=== PATIENT | male | born 1960 | race Caucasian/White ===

== ENCOUNTER 2017-12-08 09:49 | Emergency (ER) | payer OTHER ==
[2017-12-08 09:57] VITALS: BP 158/88
[2017-12-08] MEDS ORDERED: TDAP ADULT 0.5 ML INJ (BOOSTRIX) IM ONE (10:02)
--- NOTE | 2017-12-08 10:05 | EDPHY ---
H & P Stated Complaint: R hand injury at work--wire cut--needs tetanus Source: Patient Exam Limitations: No limitations - Personal History Current Tetanus/Diphtheria Vaccine: No Current Tetanus Diphtheria and Acellular Pertussis (TDAP): No Tetanus Vaccine Date: 1997 - Medical/Surgical History Hx Asthma: No Hx Chronic Respiratory Disease: No Hx Diabetes: No Hx Cardiac Disease: No Hx Renal Disease: No Hx Cirrhosis: No Hx Alcoholism: No Hx HIV/AIDS: No Hx Splenectomy or Spleen Trauma: No Other PMH: htn - Social History Smoking Status: Never smoked Time Seen by Provider: 12/08/17 10:01 HPI/ROS: HPI: This is a 57-year-old male who presents with Chief Complaint: R hand injury at work--wire cut--needs tetanus Location: Right hand Quality: Injury Duration: Prior to arrival Signs and Symptoms: No bleeding, no radiation, no numbness, no weakness, no tingling, no incontinence, no decreased range of motion, no swelling, no pain, no fever Timing: Acute Severity: [id number] Context: Patient is right-hand dominant, employed at [employer], presents with complaints of puncture wound of metal wire at the top of his right hand. He reports that the wire was intact and he was able to pull it out prior to arrival. 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 He denies any pain/paresthesias/weakness/decreased range of motion. Tetanus status unknown. He believes that he was able to pull the entire wire out and there are no foreign bodies left inside of his hand. Modifying Factors: None Comment: ROS: see HPI Constitutional: No fever, no chills, no weight loss Eyes: No blurred vision Respiratory: No shortness of breath, no cough Cardiovascular: No chest pain Gastrointestinal: No nausea, no vomiting no diarrhea Genitourinary: No dysuria Extremities: No myalgias Neurologic: No weakness, no numbness Skin: No rashes Hematologic: No bruising, no bleeding MEDICAL/SURGICAL/SOCIAL HISTORY: Medical history: Hypertension Surgical history: Denies Social history: Nonsmoker. Employed at [employer]. CONSTITUTIONAL: extremely pleasant and polite adult white male, awake and alert , no obvious distress HEENT: Atraumatic and normocephalic. Cardiovascular: Normal S1/S2, regular rate, regular rhythm, without murmur rub or gallop. PULMONARY/CHEST: Symmetrical and nontender. no crepitus. Clear to auscultation bilaterally. Good air movement. No accessory muscle usage. ABDOMEN: Soft, nondistended, nontender, no ecchymosis. EXTREMITIES: 2/2 pulses, strength 5/5, right hand dorsal aspect small pinpoint puncture site 2nd metacarpals-not through and through; no drainage/redness/ tenderness to palpation. DIP/PIP/MCP flexion/extension intact with good light touch sensation. no deformities, no clubbing, no cyanosis or edema. NEUROLOGICAL: no focal neuro deficits. GCS 15. Light touch sensation intact. SKIN: Warm and dry, no erythema. no rash. Good capillary refill. (Velia Flores) Constitutional: Initial Vital Signs Temperature (C) 37.8 C 12/08/17 09:53 Heart Rate 71 12/08/17 09:53 Respiratory Rate 16 12/08/17 09:53 Blood Pressure 158/88 H 12/08/17 09:53 O2 Sat (%) 96 12/08/17 09:53 O2 Delivery Mode Room Air Allergies/Adverse Reactions: amoxicillin [Amoxicillin] Allergy (Verified 12/19/11 07:45) Home Medications: Medication Instructions Recorded Cephalexin [Keflex (*)] 500 mg PO TID #21 cap 12/08/17 Lisinopril 12/08/17 Medical Decision Making ED Course/Re-evaluation: No signs of neurovascular compromise/tenting of skin/compartment syndrome/ extremities and joints examined above and below area of concern and are neurovascularly intact/tenosynovitis/cellulitis/foreign body. Patient irrigated copiously and cleaned. Bacitracin and clean sterile dressing applied. Placed on Keflex 3 times a day for antibiotic prophylaxis. Tetanus booster given. This patient was seen under the supervision of my secondary supervising physician. I evaluated care for this patient independently. Discussed this patient with Dr. Parekh who did not see the patient. (Velia Flores) The patient was evaluated and managed by the physician pediatric physical therapy assistant. I have reviewed this chart and I agree with the findings and plan of care as documented , as indicated by my signature. I am the secondary supervising physician. ( Zara Parekh) Differential Diagnosis: Differential diagnosis includes but is not limited to puncture wound, cellulitis , tendon injury, laceration. (Velia Flores) - Data Points Medications Given: Discontinued Medications Diphtheria/Tetanus/Acell Pertussis (Boostrix) 0.5 ml IM .ONCE ONE Stop: 12/08/17 10:03 Last Admin: 12/08/17 10:07 Dose: 0.5 ml Departure - Departure Disposition: Home, Routine, Self-Care Clinical Impression: Puncture wound of right hand without foreign body Condition: Good Instructions: Puncture Wound (ED) Additional Instructions: 1) Keep the dressing dry and in place for 48 hours. 2) After 48 hours, you may remove the dressing; wash the site daily with mild soap and water; then pat dry; apply topical antibiotic ointment daily until fully healed. 3) Take Tylenol 650 mg every 4 hours and/or Ibuprofen 600 mg every 8 hours with food as needed for pain. 4) Take Keflex 500 mg 3 times daily x7 days for antibiotic prophylaxis. 5) Monitor for signs and symptoms of infection including warmth, redness, tenderness, discharge. 6) Return to the ER immediately if you experience new or worsening pain, discoloration, numbness, tingling, or any other symptoms that concern you. Referrals: PCP Not In,Dictionary [Medical Doctor] - As per Instructions Prescriptions: Cephalexin [Keflex (*)] 500 mg PO TID #21 cap
== END 2017-12-08 10:15 | disposition home or self-care (01) ==
DX: S61.431A Puncture wound without foreign body of right hand, initial encounter (principal); I10 Essential (primary) hypertension; Z23 Encounter for immunization; W45.8XXA Other foreign body or object entering through skin, initial encounter

== ENCOUNTER → 2017-12-29 | Outpatient (CLI) | payer OTHER | LOC: CIMAGING 09:26 | PROVIDERS: ATTEND Physical Medicine & Rehabilitation | DX: M25.841 Other specified joint disorders, right hand (principal) | CPT/HCPCS: 73130-PO ==